=== PATIENT | female | born 1985 | race Caucasian/White ===

== ENCOUNTER 2023-10-16 17:59 | Emergency (ER) | payer OTHER ==
[~2023-10-16] VITALS: Ht 167.6 cm; Wt 90.7 kg
[2023-10-16 18:26] VITALS: BP 105/62; PULSE 85; RESP 20; TEMP 97.5; O2SAT 98
[2023-10-16] MEDS ORDERED: ACET-10509 PO (18:55)
[2023-10-16] MEDS ORDERED: GUAI237L61 PO (18:55)
[2023-10-16] MEDS ORDERED: BACITRACIN OINT 500 UNITS/GM PKT TP ONE (19:05)
[2023-10-16 20:01] LABS: FLU A ANTIGEN negative (NEGATIVE); FLU B ANTIGEN NEGATIVE (NEGATIVE)
== END 2023-10-16 19:24 | disposition home or self-care (01) ==
LOC: MED 17:59
DX: O99.512 Diseases of the respiratory system complicating pregnancy, second trimester (principal); Z20.822 Contact with and (suspected) exposure to COVID-19; J06.9 Acute upper respiratory infection, unspecified; Z3A.27 27 weeks gestation of pregnancy
CPT/HCPCS: 99283